=== PATIENT | male | born 1985 | race Caucasian/White ===

== ENCOUNTER 2016-12-30 14:41 | Emergency (ER) | payer OTHER ==
[~2016-12-30] VITALS: Ht 188 cm; Wt 102.3 kg
[2016-12-30 16:44] VITALS: BP 143/81; PULSE 83; TEMP 98.4
== END 2016-12-30 16:45 | disposition home or self-care (01) ==
LOC: COL.ER 14:41
DX: M65.821 Other synovitis and tenosynovitis, right upper arm (principal)
CPT/HCPCS: J1100

== ENCOUNTER 2017-05-19 15:42 | Emergency (ER) | payer BC, OTHER ==
[~2017-05-19] VITALS: Ht 190.5 cm; Wt 100.0 kg
[2017-05-19 15:44] VITALS: TEMP 98
[2017-05-19 17:18] VITALS: BP 120/73; PULSE 95
[2017-05-19] MEDS ORDERED: NORCO 325 MG-51 TAB PO (17:25)
== END 2017-05-19 17:42 | disposition home or self-care (01) ==
LOC: COL.ER 15:42
DX: S52.572A Other intraarticular fracture of lower end of left radius, initial encounter for closed fracture (principal); S52.612A Displaced fracture of left ulna styloid process, initial encounter for closed fracture; W13.2XXA Fall from, out of or through roof, initial encounter; Y92.008 Other place in unspecified non-institutional (private) residence as the place of occurrence of the external cause
CPT/HCPCS: J2270; J2405

== ENCOUNTER 2018-07-27 21:54 | Emergency (ER) | payer OTHER ==
[~2018-07-27] VITALS: Ht 188 cm; Wt 102.3 kg
[~2018-07-27 21:54] MED LIST: NORCO 325 MG-51 TAB PO
[2018-07-27 21:55] VITALS: BP 138/81; TEMP 99.1
[2018-07-28 00:14] VITALS: PULSE 95
== END 2018-07-28 00:14 | disposition home or self-care (01) ==
LOC: COL.ER 21:54
DX: J03.90 Acute tonsillitis, unspecified (principal); J45.909 Unspecified asthma, uncomplicated

== ENCOUNTER 2020-07-05 11:43 | Emergency (ER) | payer OTHER ==
[~2020-07-05] VITALS: Ht 190.5 cm; Wt 104.5 kg
[2020-07-05 11:47] VITALS: BP 154/85; TEMP 98.9
[2020-07-05 13:19] VITALS: PULSE 61
== END 2020-07-05 13:19 | disposition home or self-care (01) ==
LOC: COL.ER 11:43
DX: T63.451A Toxic effect of venom of hornets, accidental (unintentional), initial encounter (principal); F17.210 Nicotine dependence, cigarettes, uncomplicated